=== PATIENT | male | born 1965 | race Caucasian/White ===

== ENCOUNTER 2021-02-26 21:06 | Observation (INO) ==
[2021-02-26] MEDS ORDERED: Vancomycin 1,250 MG/262.5 ML IV.SOLN IVPB ONE (23:00)
[2021-02-26] MEDS ORDERED: Meropenem 1,000 MG in 0.9 % Sodium Chloride Mini Bag 100 ML IVPB ONE (23:00)
[2021-02-26 23:19] LABS: Basophils % 0.4 %; Eosinophils # 0.2 K/mcL (0.0-0.6); Eosinophils % 1.6 %; Hematocrit 37.3 % (37.5-50.1); Hemoglobin 13.6 g/dL (12.9-16.9); Immature Granulocytes % 0.4 % (0-4); Lymphocytes # 2.1 K/mcL (0.6-4.6); Lymphocytes % 19.6 %; Mean Corpuscular HGB Conc 36.5 g/dL (31.6-35.5); Mean Corpuscular Hemoglobin 32.9 pg (28.0-33.3); Mean Corpuscular Volume 90.1 fL (83.0-100.0); Mean Platelet Volume 12.3 fL (9.4-12.4); Monocytes # 0.9 K/mcL (0.0-1.3); Monocytes % 8.6 %; Neutrophils # 7.3 K/mcL (1.6-8.9); Platelet Count 174 K/mcL (140-400); Red Blood Count 4.14 M/mcL (4.19-5.50); Red Cell Distribution Width 12.8 % (11.5-14.5); Segmented Neutrophils % 69.4 %; White Blood Count 10.5 K/mcL (4.3-11.1)
[2021-02-26 23:40] LABS: BUN/Creatinine Ratio 20 (6-26); Blood Urea Nitrogen 17 mg/dL (6-20); C-Reactive Protein 39 mg/L (Less than 10); Calcium 8.8 mg/dL (8.6-10.3); Carbon Dioxide 28 mEq/L (23-29); Chloride 100 mEq/L (98-107); Glucose 98 mg/dL (70-105); Osmolality,Calculated 284 (280-300); Potassium 3.2 mEq/L (3.5-5.1); Sodium 136 mEq/L (136-145); eGFR For African Americans > 60 (> 60); eGFR For Non-African Americans > 60 (> 60)
[2021-02-27] MEDS ORDERED: *HR* HYDROmorphone (PF) 1 MG/ML SYRINGE IVP ONE (00:10)
[2021-02-27] MEDS ORDERED: Tdap (Boostrix) Vaccine 0.5 ML SYRINGE IM ONE (02:00)
[2021-02-27] MEDS ORDERED: Aspirin 81 MG TAB.CHEW PO ONE (02:23)
[2021-02-27] MEDS ORDERED: Ondansetron 4 MG/2 ML VIAL IVP ONE (02:23)
[2021-02-27] MEDS ORDERED: Naloxone 0.4 MG/ML INJ IVP PRN (04:19)
[2021-02-27] MEDS ORDERED: Ondansetron 4 MG/2 ML VIAL IVP PRN (04:19)
[2021-02-27] MEDS ORDERED: Gadolinium Contrast Agent (WT Based) IV PRN (05:12)
[2021-02-27 07:09] VITALS: BP 137/76; PULSE 58; TEMP 97.6; O2SAT 95
== END 2021-02-27 11:06 | disposition home or self-care (01) ==
LOC: EMEROOARM 21:06 → 2ANU 21:06 → SUATTDRO 02-27 03:51 → 2ANU 02-27 04:02
PROVIDERS: ADMIT Student in an Organized Health Care Education/Training Program; ATTEND Family Medicine